=== PATIENT | female | born 1995 | race Caucasian/White ===

== ENCOUNTER 2018-11-23 20:02 | Emergency (ER) | payer SELFPAY ==
[~2018-11-23] VITALS: Ht 157.5 cm; Wt 90.7 kg
[2018-11-23 20:12] VITALS: Ht 157.5 cm; Wt 90.7 kg
[2018-11-23 23:08] VITALS: BP 137/95
== END 2018-11-23 23:08 | disposition other institution (70) ==
LOC: ED 20:02
DX: S51.811A Laceration without foreign body of right forearm, initial encounter (principal); X58.XXXA Exposure to other specified factors, initial encounter; Y93.89 Activity, other specified; Y92.89 Other specified places as the place of occurrence of the external cause; Y99.8 Other external cause status
CPT/HCPCS: 90715; J2001

== ENCOUNTER 2018-11-23 20:02 | Emergency (ER) | payer OTHER | END 2018-11-23 23:08 | disposition other institution (70) | LOC: ED 20:02 | DX: Z02.89 Encounter for other administrative examinations (principal) ==

== ENCOUNTER 2018-11-25 06:12 | Emergency (ER) | payer SELFPAY ==
[~2018-11-25] VITALS: Ht 157.5 cm; Wt 86.9 kg
[2018-11-25 06:15] VITALS: Ht 157.5 cm; Wt 86.9 kg
[2018-11-25 06:59] VITALS: BP 136/82
== END 2018-11-25 06:59 | disposition home or self-care (01) ==
LOC: ED 06:12
DX: S41.111D Laceration without foreign body of right upper arm, subsequent encounter (principal); X58.XXXD Exposure to other specified factors, subsequent encounter

== ENCOUNTER 2018-12-07 18:17 | Emergency (ER) | payer SELFPAY ==
[~2018-12-07] VITALS: Ht 157.5 cm; Wt 89.8 kg
[2018-12-07 18:26] VITALS: Ht 157.5 cm; Wt 89.8 kg
[2018-12-07 19:33] VITALS: BP 121/83
== END 2018-12-07 19:33 | disposition home or self-care (01) ==
LOC: ED 18:17
DX: S51.811D Laceration without foreign body of right forearm, subsequent encounter (principal); X58.XXXD Exposure to other specified factors, subsequent encounter